=== PATIENT | female | born 1970 | race Caucasian/White ===

== ENCOUNTER 2017-08-09 22:36 | Inpatient (IN) | payer MEDICARE ==
[~2017-08-09] VITALS: Ht 172.7 cm; Wt 135.2 kg
[2017-08-09] MEDS ORDERED: METF500T4 PO (23:38)
[2017-08-09] MEDS ORDERED: ARIP2 PO (23:38)
[2017-08-09 23:42] LABS: GLUCOSE,POINT OF CARE 129 MG/DL (70-110)
[2017-08-10 01:05] LABS: BASOPHILS % (AUTO) 0.4 % (0.0-2.0); EOSINOPHILS % (AUTO) 0.7 % (1.0-6.0); HEMOGLOBIN 12.7 g/dL (12.0-16.0); LYMPHOCYTES # (AUTO) 3.4 K/uL (1.0-4.8); MEAN CORPUSCULAR HEMOGLOBIN 26.4 pg (26.0-34.0); MEAN CORPUSCULAR HGB CONC 33.3 G/dL (31.0-37.0); MEAN CORPUSCULAR VOLUME 79 fL (80-100); MONOCYTES # (AUTO) 1.1 K/uL (0.1-1.0); MONOCYTES % (AUTO) 6.8 % (2.0-9.0); NEUTROPHILS # (AUTO) 11.4 K/uL (1.8-7.7); NEUTROPHILS % (AUTO) 71.1 % (40.0-70.0); PLATELET COUNT (AUTO) 281 K/uL (150-450); RED BLOOD CELL COUNT(AUTO) 4.79 MIL/uL (4.00-5.20); RED CELL DISTRIBUTION WIDTH 14.2 % (11.5-14.5)
[2017-08-10 01:15] LABS: ANION GAP 15 mmol/L (8-16); CARBON DIOXIDE 22 mmol/L (22-29); CHLORIDE 99 mmol/L (98-107); CREATININE 0.88 mg/dL (0.60-1.30); GLOMERULAR FILTR. RATE CALC > 60 mL/min (>60); GLUCOSE,RANDOM 138 mg/dL (70-110); POTASSIUM 3.8 mmol/L (3.5-5.1); SODIUM SERUM 136 mmol/L (136-145); UREA NITROGEN, BLOOD 16 mg/dL (7-18)
[2017-08-10] MEDS ORDERED: LORazepam 2 MG/ML VIAL IM ONE (01:15)
[2017-08-10] MEDS ORDERED: HALOPERIDOL LACTATE 5 MG/ML VIAL IM ONE (01:15)
[2017-08-10] MEDS ORDERED: DiphenhydrAMINE HCL 50 MG/ML VIAL IM ONE (01:15)
[2017-08-10 01:22] LABS: ALANINE AMINOTRANSFERASE 43 U/L (12-78); ALKALINE PHOSPHATASE 62 U/L (46-116); ASPARTATE AMINOTRANSFERASE 20 U/L (15-37); BILIRUBIN,TOTAL 0.3 mg/dL (0.1-1.0); TOTAL PROTEIN, SERUM 7.5 g/dL (6.4-8.2)
[2017-08-10 01:45] LABS: AMPHET/METH SCREEN,URINE NEGATIVE (NEGATIVE); BARBITURATE SCREEN, URINE NEGATIVE (NEGATIVE); BENZODIAZEPINES SCREEN,URINE NEGATIVE (NEGATIVE); CANNABINOID SCREEN,URINE NEGATIVE (NEGATIVE); COCAINE SCREEN,URINE NEGATIVE (NEGATIVE); METHADONE SCREEN, URINE NEGATIVE (NEGATIVE); OPIATE SCREEN,URINE NEGATIVE (NEGATIVE); PHENCYCLIDINE SCREEN,URINE NEGATIVE (NEGATIVE)
[2017-08-10] MEDS ORDERED: HALOPERIDOL 5 MG TABLET PO PRN (02:00)
[2017-08-10 03:13] LABS: GLUCOMETER DEV NAME(LOC) BV2N3; GLUCOSE,POINT OF CARE 110 MG/DL (70-110)
[2017-08-10] MEDS: ZOLPIDEM TARTRATE 10 MG TABLET PO PRN ×2 (03:25→20:47)
[2017-08-10 03:59] VITALS: BP 112/69
[2017-08-10] MEDS ORDERED: PNEUMOCOCCAL VACCINE POLYVALENT 0.5 ML VIAL [PPSV23] IM ONE (04:00)
[2017-08-10 08:37] VITALS: BP 118/68
[2017-08-10] MEDS: LORazepam 2 MG TABLET PO PRN ×2 (09:57→15:27)
[2017-08-10 10:58] LABS: GLUCOMETER DEV NAME(LOC) BV2S; GLUCOSE,POINT OF CARE 120 MG/DL (70-110)
[2017-08-10] MEDS ORDERED: GLUCAGON,HUMAN RECOMBINANT 1 MG VIAL IM PRN (12:45)
[2017-08-10 16:21] VITALS: BP 122/75
[2017-08-10 16:48] LABS: GLUCOMETER DEV NAME(LOC) BV2S; GLUCOSE,POINT OF CARE 168 MG/DL (70-110)
[2017-08-10] MEDS: INSULIN ASPART 100 UNITS/ML SQ PRN (16:52)
[2017-08-10 21:17] LABS: GLUCOMETER DEV NAME(LOC) BV2S; GLUCOSE,POINT OF CARE 115 MG/DL (70-110)
[2017-08-11 02:10] VITALS: BP 116/78
[2017-08-11] MEDS: LORazepam 2 MG TABLET PO PRN ×3 (04:11→18:33)
[2017-08-11] MEDS: MetFORMIN HCL 500 MG TABLET PO SCH (06:23)
[2017-08-11 06:34] LABS: GLUCOMETER DEV NAME(LOC) BV2S; GLUCOSE,POINT OF CARE 120 MG/DL (70-110)
[2017-08-11 08:14] LABS: BASOPHILS % (AUTO) 0.6 % (0.0-2.0); EOSINOPHILS % (AUTO) 1.4 % (1.0-6.0); HEMATOCRIT 38.4 % (36-46); LYMPHOCYTES # (AUTO) 2.3 K/uL (1.0-4.8); LYMPHOCYTES % (AUTO) 24.3 % (22.0-44.0); MEAN CORPUSCULAR HGB CONC 33.8 G/dL (31.0-37.0); MEAN CORPUSCULAR VOLUME 80 fL (80-100); MONOCYTES # (AUTO) 0.7 K/uL (0.1-1.0); MONOCYTES % (AUTO) 7.2 % (2.0-9.0); NEUTROPHILS # (AUTO) 6.3 K/uL (1.8-7.7); NEUTROPHILS % (AUTO) 66.5 % (40.0-70.0); PLATELET COUNT (AUTO) 247 K/uL (150-450); RED CELL DISTRIBUTION WIDTH 14.1 % (11.5-14.5)
[2017-08-11 08:30] LABS: HEMOGLOBIN A1C 6.4 % (4.5-6.2)
[2017-08-11 08:33] VITALS: BP 106/69
[2017-08-11] MEDS: ARIPiprazole 10 MG TABLET PO SCH (08:50)
[2017-08-11] MEDS: SERTRALINE HCL 50 MG TABLET PO SCH (08:50)
[2017-08-11 08:54] LABS: CHOL/HDL RATIO 3.2 (3.9-5.7); FREE T4 (FREE THYROXINE) 0.81 ng/dL (0.76-1.46); THYROID STIMULATING HORMONE 2.59 uIU/mL (0.36-3.74)
[2017-08-11] MEDS ORDERED: SERTRALINE HCL 50 MG TABLET PO SCH (09:00)
[2017-08-11 11:12] LABS: GLUCOMETER DEV NAME(LOC) BV2S; GLUCOSE,POINT OF CARE 127 MG/DL (70-110)
[2017-08-11 16:19] VITALS: BP 125/72
[2017-08-11 16:23] LABS: GLUCOMETER DEV NAME(LOC) BV2S; GLUCOSE,POINT OF CARE 152 MG/DL (70-110)
[2017-08-11] MEDS: INSULIN ASPART 100 UNITS/ML SQ PRN (16:31)
[2017-08-11] MEDS: IBUPROFEN 400 MG TABLET PO PRN (17:53)
[2017-08-11 17:54] VITALS: BP 119/68
[2017-08-11 20:32] LABS: GLUCOMETER DEV NAME(LOC) BV2S; GLUCOSE,POINT OF CARE 118 MG/DL (70-110)
[2017-08-11] MEDS: ZOLPIDEM TARTRATE 10 MG TABLET PO PRN (20:49)
[2017-08-12 02:34] VITALS: BP 106/78
[2017-08-12] MEDS: IBUPROFEN 400 MG TABLET PO PRN ×2 (02:55→12:59)
[2017-08-12 06:28] LABS: GLUCOMETER DEV NAME(LOC) BV2S; GLUCOSE,POINT OF CARE 126 MG/DL (70-110)
[2017-08-12] MEDS: MetFORMIN HCL 500 MG TABLET PO SCH ×2 (06:29→17:14)
[2017-08-12] MEDS: LORazepam 2 MG TABLET PO PRN ×3 (07:40→19:40)
[2017-08-12 08:29] VITALS: BP 123/87
[2017-08-12] MEDS: SERTRALINE HCL 50 MG TABLET PO SCH (08:37)
[2017-08-12] MEDS: ARIPiprazole 10 MG TABLET PO SCH (08:37)
[2017-08-12 11:13] LABS: GLUCOMETER DEV NAME(LOC) BV2S; GLUCOSE,POINT OF CARE 109 MG/DL (70-110)
[2017-08-12 12:58] VITALS: BP 127/67
[2017-08-12 13:59] VITALS: BP 132/75
[2017-08-12 16:20] VITALS: BP 128/84
[2017-08-12 16:53] LABS: GLUCOMETER DEV NAME(LOC) BV2S; GLUCOSE,POINT OF CARE 113 MG/DL (70-110)
[2017-08-12 18:59] VITALS: BP 124/81
[2017-08-12] MEDS: ACETAMINOPHEN 325 MG TABLET PO PRN (18:59)
[2017-08-12] MEDS: ZOLPIDEM TARTRATE 10 MG TABLET PO PRN (21:21)
[2017-08-13 01:20] VITALS: BP 110/67
[2017-08-13 02:07] LABS: GLUCOMETER DEV NAME(LOC) BV2S; GLUCOSE,POINT OF CARE 106 MG/DL (70-110)
[2017-08-13 04:35] VITALS: BP 135/85
[2017-08-13] MEDS: LORazepam 2 MG TABLET PO PRN ×4 (04:35→21:16)
[2017-08-13] MEDS: IBUPROFEN 400 MG TABLET PO PRN (04:35)
[2017-08-13] MEDS: ACETAMINOPHEN 325 MG TABLET PO PRN ×3 (05:28→22:09)
[2017-08-13 06:23] LABS: GLUCOMETER DEV NAME(LOC) BV2S; GLUCOSE,POINT OF CARE 126 MG/DL (70-110)
[2017-08-13] MEDS: MetFORMIN HCL 500 MG TABLET PO SCH ×2 (06:26→16:39)
[2017-08-13] MEDS: ARIPiprazole 10 MG TABLET PO SCH (08:29)
[2017-08-13] MEDS: SERTRALINE HCL 50 MG TABLET PO SCH (08:29)
[2017-08-13 08:30] LABS: CHOL/HDL RATIO 3.4 (3.9-5.7)
[2017-08-13] MEDS ORDERED: ARIP10TA8 PO (08:33)
[2017-08-13] MEDS ORDERED: SERT25TA PO (08:34)
[2017-08-13] MEDS ORDERED: METF500T PO (08:34)
[2017-08-13 08:44] VITALS: BP 120/86
[2017-08-13 11:08] LABS: GLUCOMETER DEV NAME(LOC) BV2S; GLUCOSE,POINT OF CARE 104 MG/DL (70-110)
[2017-08-13 12:38] VITALS: BP 116/82
[2017-08-13 15:57] LABS: GLUCOMETER DEV NAME(LOC) BV2S; GLUCOSE,POINT OF CARE 135 MG/DL (70-110)
[2017-08-13 16:10] VITALS: BP 138/72
[2017-08-13 20:28] LABS: GLUCOMETER DEV NAME(LOC) BV2S; GLUCOSE,POINT OF CARE 103 MG/DL (70-110)
[2017-08-13] MEDS: ZOLPIDEM TARTRATE 10 MG TABLET PO PRN (21:59)
[2017-08-14 02:50] VITALS: BP 129/83
[2017-08-14 06:52] LABS: GLUCOMETER DEV NAME(LOC) BV2S; GLUCOSE,POINT OF CARE 100 MG/DL (70-110)
[2017-08-14 07:00] VITALS: BP 126/80
[2017-08-14] MEDS: MetFORMIN HCL 500 MG TABLET PO SCH (07:22)
[2017-08-14] MEDS: ACETAMINOPHEN 325 MG TABLET PO PRN ×2 (07:24→19:34)
[2017-08-14] MEDS: SERTRALINE HCL 100 MG TABLET PO SCH (08:01)
[2017-08-14] MEDS: ARIPiprazole 10 MG TABLET PO SCH (08:01)
[2017-08-14] MEDS: LORazepam 2 MG TABLET PO PRN ×3 (08:02→21:53)
[2017-08-14 08:28] VITALS: BP 134/75
[2017-08-14 11:12] LABS: GLUCOMETER DEV NAME(LOC) BV2S; GLUCOSE,POINT OF CARE 80 MG/DL (70-110)
[2017-08-14 16:16] VITALS: BP 140/81
[2017-08-14 16:23] LABS: GLUCOMETER DEV NAME(LOC) BV2S; GLUCOSE,POINT OF CARE 102 MG/DL (70-110)
[2017-08-14 20:38] LABS: GLUCOMETER DEV NAME(LOC) BV2S; GLUCOSE,POINT OF CARE 97 MG/DL (70-110)
[2017-08-14] MEDS: ZOLPIDEM TARTRATE 10 MG TABLET PO PRN (20:55)
[2017-08-15 00:34] VITALS: BP 114/78
[2017-08-15] MEDS: ACETAMINOPHEN 325 MG TABLET PO PRN (06:20)
[2017-08-15 06:23] LABS: GLUCOMETER DEV NAME(LOC) BV2S; GLUCOSE,POINT OF CARE 119 MG/DL (70-110)
[2017-08-15] MEDS: LORazepam 2 MG TABLET PO PRN (06:31)
[2017-08-15] MEDS ORDERED: MetFORMIN HCL 500 MG TABLET PO SCH (07:00)
[2017-08-15] MEDS: ARIPiprazole 10 MG TABLET PO SCH (08:35)
[2017-08-15] MEDS: SERTRALINE HCL 100 MG TABLET PO SCH (08:35)
[2017-08-15 09:18] VITALS: BP 130/78
[2017-08-15 11:12] LABS: GLUCOMETER DEV NAME(LOC) BV2S; GLUCOSE,POINT OF CARE 104 MG/DL (70-110)
[2017-08-15 17:18] LABS: GLUCOMETER DEV NAME(LOC) BV2S; GLUCOSE,POINT OF CARE 115 MG/DL (70-110)
== END 2017-08-15 17:00 | disposition home or self-care (01) | DRG 885 ==
LOC: EMS 22:38 → B2X 08-10 01:54
PROVIDERS: ADMIT Psychiatry & Neurology Psychiatry; ATTEND Psychiatry & Neurology Psychiatry
DX: F25.0 Schizoaffective disorder, bipolar type (principal); E11.649 Type 2 diabetes mellitus with hypoglycemia without coma; R45.850 Homicidal ideations; F60.3 Borderline personality disorder; D72.829 Elevated white blood cell count, unspecified; G89.29 Other chronic pain; I10 Essential (primary) hypertension; R45.87 Impulsiveness; Z88.0 Allergy status to penicillin; Z79.899 Other long term (current) drug therapy
CPT/HCPCS: 82962; 83036; 84439; 84443; 90471; 96372; 99285; G0480; J1200; J1630; J2060

== ENCOUNTER 2019-10-12 15:59 | Emergency (ER) | payer MEDICARE, OTHER ==
[~2019-10-12] VITALS: Ht 172.7 cm; Wt 136.4 kg
[~2019-10-12 15:59] MED LIST: ARIP10TA8 PO; METF500T PO; SERT25TA PO
[2019-10-12] MEDS ORDERED: PALI156D IM (16:06)
[2019-10-12 16:35] LABS: GLUCOSE,POINT OF CARE 99 MG/DL (70-110)
[2019-10-12 16:42] LABS: BASOPHILS % (AUTO) 0.5 % (0.0-2.0); EOSINOPHILS % (AUTO) 0.8 % (1.0-6.0); HEMOGLOBIN 12.7 g/dL (12.0-16.0); LYMPHOCYTES # (AUTO) 1.9 K/uL (1.0-4.8); LYMPHOCYTES % (AUTO) 21.5 % (22.0-44.0); MEAN CORPUSCULAR HEMOGLOBIN 26.6 pg (26.0-34.0); MEAN CORPUSCULAR HGB CONC 32.6 G/dL (31.0-37.0); MEAN CORPUSCULAR VOLUME 82 fL (80-100); MONOCYTES # (AUTO) 0.6 K/uL (0.1-1.0); MONOCYTES % (AUTO) 6.6 % (2.0-9.0); NEUTROPHILS # (AUTO) 6.3 K/uL (1.8-7.7); NEUTROPHILS % (AUTO) 70.6 % (40.0-70.0); PLATELET COUNT (AUTO) 285 K/uL (150-450); RED BLOOD CELL COUNT(AUTO) 4.78 MIL/uL (4.00-5.20); RED CELL DISTRIBUTION WIDTH 13.7 % (11.5-14.5)
[2019-10-12 16:45] LABS: ANION GAP 9 mmol/L (8-16); CALCIUM, TOTAL 9.5 mg/dL (8.8-10.5); CARBON DIOXIDE 28 mmol/L (22-29); CHLORIDE 102 mmol/L (98-107); CREATININE 0.75 mg/dL (0.60-1.30); GLOMERULAR FILTR. RATE CALC > 60 mL/min (>60); GLUCOSE,RANDOM 109 mg/dL (70-110); POTASSIUM 4.2 mmol/L (3.5-5.1); SODIUM SERUM 139 mmol/L (136-145); UREA NITROGEN, BLOOD 9 mg/dL (7-18)
[2019-10-12 16:56] LABS: ALANINE AMINOTRANSFERASE 40 U/L (12-78); ALKALINE PHOSPHATASE 59 U/L (46-116); ASPARTATE AMINOTRANSFERASE 25 U/L (15-37); BILIRUBIN,TOTAL 0.2 mg/dL (0.1-1.0); HCG,QUANTITATIVE 1 mIU/mL (0-6)
[2019-10-12 17:12] LABS: ACETAMINOPHEN < 2 mcg/mL (10-30)
[2019-10-12] MEDS ORDERED: HALOPERIDOL 5 MG TABLET PO ONE (17:15)
[2019-10-12 17:54] LABS: SALICYLATE 2.8 mg/dL (2.8-20.0)
[2019-10-12 18:14] VITALS: BP 138/80
== END 2019-10-12 18:35 | disposition home or self-care (01) ==
LOC: EMS 15:59
DX: F25.9 Schizoaffective disorder, unspecified (principal); E11.9 Type 2 diabetes mellitus without complications
CPT/HCPCS: 36415; 80053; 82962; 84702; 85025; 99284; G0480; G0481